=== PATIENT | male | born 1995 | race African-American/Black ===

== ENCOUNTER → 2018-01-25 | Outpatient (REF) | payer SELFPAY, OTHER ==
[2018-01-25 20:51] LABS: CHLAMYDIA DNA AMPLIFICATION POSITIVE (NEGATIVE); GC DNA AMPLIFICATION NEGATIVE (NEGATIVE)
== END ==
LOC: M SFHCLERA 15:19
DX: R36.9 Urethral discharge, unspecified (principal)
CPT/HCPCS: 87086